=== PATIENT | male | born 1985 | race Caucasian/White ===

== ENCOUNTER 2022-11-15 09:29 | Emergency (ER) | payer BC, SELFPAY ==
[2022-11-15 09:32] VITALS: BP 155/82; PULSE 71; RESP 18; TEMP 36.5; O2SAT 94; BMI 36.6
[2022-11-15 09:36] VITALS: O2SAT 96
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
[2022-11-15] MEDS: LORazepam 2 MG/ML Syringe 1 MG IV (10:00)
[2022-11-15] MEDS: Ondansetron 4 MG/2 ML Vial IV (10:01)
[2022-11-15] MEDS: HYDROmorphone 0.5 MG/0.5 ML SYRINGE IV (10:01)
[2022-11-15] MEDS: 0.9% Normal Saline 1,000 ML 999 ML IV (10:01)
[2022-11-15 10:05] LABS: Absolute Lymphocyte Count 1.32 X10^3/uL (0.83-4.51); Absolute Neutrophil Count 6.7 X10^3/uL (2.0-7.7); Basophil# 0.04 X10^3/uL; Basophil% 0.5 % (0-1); Eosinophil# 0.07 X10^3/uL; Eosinophils% 0.8 % (0-5); Hematocrit 43.7 % (40-54); Hemoglobin 15.4 g/dL (13.0-16.5); Lymphocyte # 1.32 X10^3/ul (0.83-4.51); Lymphocyte % 15.4 % (19-41); Mean Corp Hgb Conc 35.2 g/dL (32-36); Mean Corpuscular Hgb 32.6 pg (27.0-32.0); Mean Corpuscular Volume 92.6 fL (80-94); Mean Platelet Vol. 9.9 fl (6.2-12.0); Monocyte# 0.39 X10^3/uL; Monocyte% 4.5 % (0-10); NRBC Flagged by Analyzer 0 % (0-5); Neutrophil # 6.67 X10^3/uL (2.7-7.7); Neutrophil % 77.8 % (47-70); Platelet Count 214 K/mm3 (150-450); RBC Distribution Width CV 11.4 % (11.6-14.6); RBC Distribution Width SD 38.6 fl (35.1-43.9); Red Blood Count 4.72 M/mm3 (4.6-6.2); White Blood Count 8.6 K/mm3 (4.4-11.0)
[2022-11-15] MEDS: Diphth,Pertuss(Acell),Tet Vac 0.5 ML Vial IM (10:05)
[2022-11-15 10:11] LABS: Prothrombin Time (Protime)PT. 12.8 SECONDS (11.7-14.9)
[2022-11-15 10:12] LABS: Partial Thromboplast Time 25.8 Seconds (24.1-36.2)
[2022-11-15 10:25] LABS: AST(SGOT) 23 U/L (15-37); Alanine Aminotransfer ALT/SGPT 29 U/L (16-61); Alkaline Phosphatase 97 U/L (45-117); Anion Gap 11 (5-15); BUN 16 mg/dL (7-18); BUN/Creat Ratio 14.5 RATIO (10-20); Bilirubin, Direct 0.11 mg/dL (0.00-0.30); Calcium,Total 9.3 mg/dL (8.5-10.1); Chloride 109 mmol/L (98-107); EST Glomerular Filtration Rate 79 mL/min (>60); Est Glom Filt Rate - Afr Amer 96 mL/min (>60); Estimated Creatinine Clearance 105.86 ml/min; Globulin 3.3 g/dL (2.2-4.2); Glucose 157 mg/dL (74-106); Potassium 3.4 mmol/L (3.5-5.1); Protein, Total 7.3 g/dL (6.4-8.2); Sodium Level 141 mmol/L (136-145)
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
[2022-11-15 11:23] VITALS: BP 94/72; PULSE 83; RESP 16; O2SAT 96
[2022-11-15 11:37] LABS: Bacteria 0 SEEN /hpf (None Seen); Color, Urine Yellow (Yellow); Glucose, Dipstick Normal (Normal); Ketone-Dipstick 5 mg/dl (Negative); Leukocyte Esterase-Dipstick 25 /ul (Negative); Mucous, Urine 0 SEEN /hpf (<or=2+); Nitrite-Dipstick Negative (Negative); Occult Blood-Urine 10 /ul (Negative); Protein-Dipstick 30 mg/dl (Negative); Red Blood Cells-Urine 0 SEEN /hpf (0-5); Squamous Epithelial Cells - UA 0 SEEN /hpf (0-5); Urine Bilirubin Dipstick Negative (Negative); Urine Clarity Clear (Clear); Urine Urobilinogen Normal (Normal)
[2022-11-15 11:54] LABS: Hyaline Cast 0-5 SEEN /lpf (0-5); White Blood Cells 0-5 SEEN /hpf (0-5)
[2022-11-15 12:01] VITALS: BP 113/80; PULSE 78; RESP 14; O2SAT 93
[2022-11-15] MEDS: Acetaminophen 325 MG Tablet PO (13:00)
[2022-11-15] MEDS: oxyCODONE 5 MG Tablet PO (13:08)
[2022-11-15] MEDS: Ondansetron ODT 4 MG Tablet PO (13:14)
== END 2022-11-15 13:18 | disposition home or self-care (01) ==
PROVIDERS: Emergency Provider Emergency Medicine; Visit Provider Emergency Medicine
DX: S39.012A Strain of muscle, fascia and tendon of lower back, initial encounter (principal); S32.019A Unspecified fracture of first lumbar vertebra, initial encounter for closed fracture; S22.089A Unspecified fracture of T11-T12 vertebra, initial encounter for closed fracture; S00.91XA Abrasion of unspecified part of head, initial encounter; S80.211A Abrasion, right knee, initial encounter; V48.5XXA Car driver injured in noncollision transport accident in traffic accident, initial encounter
CPT/HCPCS: 70450; 71260; 72125; 74177; 80048; 80076; 81001; 85025; 85610; 85730; 87086; 90715; 93005; 96361; 96372; 96374; 96375; 99285; J7030; Q9967; A4216; J2405